=== PATIENT | male | born 1935 | race Hispanic/Latino ===

== ENCOUNTER 2016-08-15 07:46 | Emergency (ER) | payer BC, MEDICARE ==
[2016-08-15 07:53] VITALS: RESP 16; TEMP 97.6; O2SAT 97
[2016-08-15 08:09] VITALS: BMI 30.2
[2016-08-15] MEDS ORDERED: Absorbable Gelatin Sponge Size 12-7 ONE (08:13)
[2016-08-15 08:27] LABS: ADD MANUAL DIFF? NO
[2016-08-15 08:40] LABS: BASO # 0.02 K/mm3 (0.0-2.0); BASO % 0.3 % (0.0-3.0); EOS # 0.2 (0.0-0.7); EOS % 2.8 % (1.5-5.0); GRAN # 3.62 (1.4-6.5); GRAN % 55.9 % (50.0-68.0); HEMATOCRIT 41.3 % (42.0-52.0); LYMPH # 2.2 (1.2-3.4); LYMPH % 33.4 % (22.0-35.0); MEAN CELL VOLUME 90.2 fL (80.0-105.0); MEAN CORPUSCULAR HGB CONC 34.4 g/dl (31.0-37.0); MEAN PLATELET VOLUME 11.6 fl (7.0-11.0); MONO # 0.5 (0.1-0.6); MONO % 7.6 % (1.0-6.0); PLATELET COUNT 140 10^3/uL (120.0-450.0); RED CELL DISTRIBUTION WIDTH 14.1 % (11.5-14.5); WHITE BLOOD COUNT 6.5 10^3/ul (4.5-11.0)
--- NOTE | 2016-08-15 08:53 | ED PDOC ---
Arrival/HPI - General Chief Complaint: Abnormal Skin Integrity Time Seen by Provider: 08/15/16 07:51 Historian: Patient, Other (daughter) - History of Present Illness Narrative History of Present Illness (Text): 08/15/16 09:00 An 81 year old male, whose past medical history includes DVT (L foot), presents to the emergency department complaining of right ankle bleeding. Patient's daughter reports he got out of the shower today and picked at a pimple when he started bleeding. Patient stopped taking Coumadin about a year ago. Patient denies any other complaints at this time. PMD: Dr. Ash Medications: Aspirin Symptom Onset: Sudden Symptom Course: Unchanged Activities at Onset: Rest Context: Home Associated Symptoms (Text): none Past Medical History - Provider Review Nursing Documentation Reviewed: Yes - Infectious Disease Hx of Infectious Diseases: None - Cardiac Hx Hypertension: Yes - HEENT Other/Comment: NEWHALEN. hearing aid to L ear - Musculoskeletal/Rheumatological Hx Falls: Yes Hx Spinal Stenosis: Yes - Psychiatric Hx Substance Use: No - Surgical History Other/Comment: right ear surgery/NEWHALEN - Anesthesia Hx Anesthesia: Yes Hx Anesthesia Reactions: No - Suicidal Assessment Feels Threatened In Home Enviroment: No Family/Social History - Physician Review Nursing Documentation Reviewed: Yes Family/Social History: No Known Family HX Smoking Status: Never Smoked Hx Alcohol Use: No Hx Substance Use: No Hx Substance Use Treatment: No Allergies/Home Meds Allergies/Adverse Reactions: Allergies No Known Allergies Allergy (Verified 08/17/11 09:39) Review of Systems - Physician Review All systems were reviewed & negative as marked: Yes - Review of Systems Constitutional: Normal Eyes: Normal ENT: Normal Respiratory: Normal Cardiovascular: Normal Gastrointestinal: Normal Genitourinary Male: Normal Musculoskeletal: Normal Skin: Other (bleeding on r ankle) Neurological: Normal Endocrine: Normal Hemo/Lymphatic: Normal Psychiatric: Normal Physical Exam Vital Signs Reviewed: Yes Vital Signs Temp Pulse Resp BP Pulse Ox 08/15/16 07:52 97.6 F 103 H 16 159/61 H 97 Temperature: Afebrile Blood Pressure: Hypertensive Pulse: Tachycardic Respiratory Rate: Normal Appearance: Positive for: Well-Appearing, Non-Toxic, Comfortable Pain Distress: None Mental Status: Positive for: Alert and Oriented X 3 - Systems Exam Head: Present: Atraumatic, Normocephalic Pupils: Present: PERRL Extroacular Muscles: Present: EOMI Conjunctiva: Present: Normal Mouth: Present: Moist Mucous Membranes Neck: Present: Normal Range of Motion Respiratory/Chest: Present: Clear to Auscultation, Good Air Exchange. No: Respiratory Distress, Accessory Muscle Use Cardiovascular: Present: Regular Rate and Rhythm, Normal S1, S2. No: Murmurs Abdomen: Present: Normal Bowel Sounds. No: Tenderness, Distention, Peritoneal Signs Back: Present: Normal Inspection Upper Extremity: Present: Normal Inspection. No: Cyanosis, Edema Lower Extremity: Present: Normal Inspection. No: Edema Neurological: Present: GCS=15, CN II-XII Intact, Speech Normal Skin: Present: Warm, Dry, Normal Color, Other (3 mm circular wouond on medial r ankle above varicose veins). No: Rashes Psychiatric: Present: Alert, Oriented x 3, Normal Insight, Normal Concentration Medical Decision Making ED Course and Treatment: 08/15/16 08:50 Impression: An 81 year old male with r ankle bleeding above varicose veins. Differential Diagnosis include but are not limited to: Wound bleeding most likely from pimple vs varicose veins Plan: -- labs -- Reassess and disposition Prior Visits: Notes and results from previous visits were reviewed. Patient last reported to emergency department on 05/25/14 for evaluation of a DVT with mild lower extremity pain and swelling. Patient was admitted to med/ surg. Progress Notes: Bleeding already controlled when evaluated wound. Cleaned with normal saline, placed gel foam and wrapped with gauge and sourav wrap. Explained to family to not remove wrapping for at least 2 days. Reevaluation: On reevaluation the patient feels better and is in no acute distress. I have discussed the results and plan with the patient and family, who expresses understanding. Patient given the opportunity to ask question, all questions were answered. Patient is stable for discharge. Patient was instructed to follow up with PMD in 2 days or return if symptoms persist/worsen or new concerning symptoms arise. - Lab Interpretations Lab Results: 08/15/16 08:20 Lab Results 08/15/16 08:20: PT 11.0, INR 1.02, APTT 24.3 08/15/16 08:20: WBC 6.5 D, RBC 4.58, Hgb 14.2, Hct 41.3 L, MCV 90.2, MCH 31.0, MCHC 34.4, RDW 14.1, Plt Count 140, MPV 11.6 H, Gran % 55.9, Lymph % (Auto) 33.4 , Kerr % (Auto) 7.6 H, Eos % (Auto) 2.8, Baso % (Auto) 0.3, Gran # 3.62, Lymph # 2.2, Kerr # 0.5, Eos # 0.2, Baso # 0.02 I have reviewed the lab results: Yes - Medication Orders Current Medication Orders: Discontinued Medications Gelatin (Gelfoam Size 12-7) Confirm Administered Dose 1 spg .ROUTE .STK-MED ONE Stop: 08/15/16 08:14 Last Admin: 08/15/16 08:15 Dose: 1 spg - Scribe Statement The provider has reviewed the documentation as recorded by the Scribe Yola Crowder All medical record entries made by the Scribe were at my direction and personally dictated by me. I have reviewed the chart and agree that the record accurately reflects my personal performance of the history, physical exam, medical decision making, and the department course for this patient. I have also personally directed, reviewed, and agree with the discharge instructions and disposition. Disposition/Present on Arrival - Present on Arrival Any Indicators Present on Arrival: Yes History of DVT/PE: Yes History of Uncontrolled Diabetes: No Urinary Catheter: No History of Decub. Ulcer: No History Surgical Site Infection Following: None - Disposition Have Diagnosis and Disposition been Completed?: Yes Diagnosis: Bleeding from wound Disposition: HOME/ ROUTINE Disposition Time: 09:20 Patient Plan: Discharge Patient Problems: Current Active Problems Problem Status Onset Bleeding from wound Acute Condition: IMPROVED Discharge Instructions (ExitCare): Acute Wound Care (ED), Varicose Veins (ED) Additional Instructions: Mr Vann, thank you for letting us take care of you today. Your provider was Dr. Frank. You were treated for Bleeding wound, Varicose Veins. The emergency medical care you received today was directed at your acute symptoms. If you were prescribed any medication, please fill it and take as directed. It may take several days for your symptoms to resolve. Return to the Emergency Department if your symptoms worsen, do not improve, or if you have any other problems. Please contact your doctor or call one of the physicians/clinics you have been referred to that are listed on the Patient Visit Information form that is included in your discharge packet. Bring any paperwork you were given at discharge with you along with any medications you are taking to your follow up visit. Our treatment cannot replace ongoing medical care by a primary care provider (PCP) outside of the emergency department. Thank you for allowing the [facility] team to be part of your care today. If you had an X-Ray or CT scan: A Radiologist will review the ED reading if any change in treatment is needed we will contact you. If you had a blood, urine, or wound culture: It will take several days for the results, if any change in treatment is needed we will contact you. If you had an STI test: It will take 48 hours for the results. Please call after 1 week if you have not heard back. Referrals: Farhan Ash MD [Primary Care Provider] - Follow up with primary Forms: [facility] Visits Discharge ([place])
[2016-08-15 09:12] LABS: INR 1.02 (0.93-1.08); PARTIAL THROMBOPLASTIN TIME 24.3 Seconds (23.7-30.8)
[2016-08-15 09:31] VITALS: BP 122/73; PULSE 76
== END 2016-08-15 09:32 | disposition home or self-care (01) ==
LOC: ED 07:46
DX: R58 Hemorrhage, not elsewhere classified (principal); I10 Essential (primary) hypertension